=== PATIENT | female | born 1950 ===

== ENCOUNTER 2018-08-03 07:39 | Outpatient (CLI) | payer OTHER ==
[~2018-08-03 07:39] MED LIST: COZAAR100 MG PO; CRESTOR5 MG PO; PROTONIX20 MG PO
== END 2018-08-03 08:14 | disposition home or self-care (01) ==
LOC: NUCLEAR 07:39
DX: M81.0 Age-related osteoporosis without current pathological fracture (principal); E11.9 Type 2 diabetes mellitus without complications; I25.10 Atherosclerotic heart disease of native coronary artery without angina pectoris
CPT/HCPCS: 77080; 78452; 93017; A9500

== ENCOUNTER 2021-01-02 10:03 | Outpatient (CLI) | payer OTHER | END 2021-01-02 10:04 | disposition home or self-care (01) | LOC: NUCLEAR 10:03 | PROVIDERS: ATTEND Internal Medicine Sports Medicine | DX: M85.89 Other specified disorders of bone density and structure, multiple sites (principal) ==

== ENCOUNTER → 2025-09-05 09:59 | Outpatient (CLI) | payer OTHER ==
[~2025-09-05 09:59] MED LIST changes: +GLUMETZA500 MG; +TYLENOL325 MG PO
== END | disposition home or self-care (01) ==
LOC: NUCLEAR 09:59
PROVIDERS: ATTEND General Practice
DX: M81.0 Age-related osteoporosis without current pathological fracture (principal)